=== PATIENT | male | born 1945 | race Caucasian/White ===

== ENCOUNTER → 2017-02-20 | Outpatient (CLI) | payer OTHER ==
[~2017-02-20] MED LIST: ASPIRIN EC325 MG PO; ATORVASTATIN CA40 MG PO; HYDROCHLOROTH12.5 M1 PO; LISINOPRIL40 MG PO; TENORMIN50 MG PO
== END ==
LOC: MRI 15:00
DX: M48.06 Spinal stenosis, lumbar region (principal); M47.896 Other spondylosis, lumbar region; M51.36 Other intervertebral disc degeneration, lumbar region; M47.898 Other spondylosis, sacral and sacrococcygeal region

== ENCOUNTER → 2017-02-27 | Outpatient (CLI) | payer OTHER ==
[~2017-02-27] VITALS: Ht 185.4 cm; Wt 100.2 kg
[~2017-02-27] MED LIST changes: +ASPIRIN325 PO; +NORVASC5 MG PO
--- NOTE | ~2017-02-27 | HPC ---
[facility] [address] [place] [address] PAIN MANAGEMENT CONSULTATION Name: NICK SPIVEY Room #: REG CHRIS OsbornRubi#: [id number] Admission: 02/27/17 Attend Phys: Michael Mcdonald DO Discharge: Date of : 45 Report #: [id number] THIS REPORT FOR: //name// CC: Perfecto Mcdonald The patient is a very pleasant 71-year-old gentleman seen in consultation at the request of Dr. Love for evaluation of pain, low back, right greater than left leg. The patient had similar symptoms in last fall, treated in interventional radiology with right L4-L5 synovial cyst rupture. Symptoms began to recur in November, became quite problematic in December, he notes pain is in the right posterior glute and thigh, exacerbated with standing, walking and bending. The patient was taking ctyp-dgu-uforuku anti-inflammatories with nominal efficacy. He denies bowel or bladder continence changes or saddle anesthesia, but does have paresthesia and weakness in the right leg. REVIEW OF SYSTEMS: A complete review of systems was attached to chart and was gone over with the patient. He is , seen in the company of his who is supportive. History of hypertension, taking atenolol, lisinopril, and hydrochlorothiazide; dyslipidemia for which he takes atorvastatin. Daily smoker, was counseled regarding same. Uses alcohol socially. 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 PHYSICAL EXAMINATION: Reveals a 6 feet tall, 217-pound gentleman, BMI is 29.2 kg/m2. Vital signs are stable as noted on the EMR. Cranial nerves 2-12 are grossly intact. Pupils are equal, reactive to light and accommodation. Extraocular muscles are intact. Upper extremity strength is preserved. Cervical range of motion is full. Heart is regular and rhythmical with a 2-3/6 systolic ejection murmur. The patient notes that he was diagnosed with a cardiac "valve" stenosis (aortic stenosis?), but denies chest pain or shortness of breath. Abdomen is unremarkable, though modestly endomorphic build. Rises from chair using armrest. Gait is tandem, though he does favor the right leg. He does have difficulty walking on his toes and heels secondary to balance. Right plantar flexion and lower extremity flexion is diminished compared to the left. Patellar reflex is diminished on the right compared to left. Straight leg raise is nominally positive on the right. Skin integument is intact. DIAGNOSTIC STUDIES: Include MRI of the lumbar spine from 02/20/2017, noting bilateral L4-L5 synovial cyst which has recurred, has moderate central stenosis at this level with lumbar spondylosis. ASSESSMENT: Symptomatic lumbar radiculopathy in a gentleman with nicotine habituation and hypertension, concern for aortic valve stenosis, which might [address] [address] PAIN MANAGEMENT CONSULTATION Name: NICK SPIVEY Room #: REG CARLOSergio Ramirez#: [id number] Admission: 02/27/17 Attend Phys: Michael Mcdonald DO Discharge: Date of : 45 Report #: [id number] make him a poor surgical candidate. RECOMMENDATIONS: Discussion with the patient today about therapeutic options. Epidural injection under fluoroscopy at L4-L5 to diminish acute symptoms. Follow up in 2 weeks for reevaluation and consideration for bilateral L4-L5 facet joint injections with intention of rupturing the cyst. Given that they have been ruptured in the past, likely their recurrence is high, given this, I did suggest that he least contact a neurosurgeon regarding therapeutic options. Given the patient contact information for Dr. Gallo Moore as they live very close to [facility]. We will also give him contact information for Dr. Luiz Beth and Dr. Yoshi Richards at [facility]. Thank you for allowing me to participate in the patient's care. I will keep you abreast of his progress. PROCEDURE: Lumbar epidural injection under fluoroscopy. PROCEDURE NOTE: After both written and informed consent to include risk of spinal cord damage, increased pain, weakness and dural puncture, the patient was taken to the fluoroscopy suite, placed in the prone position. After sterile prep and drape, a skin wheal with lidocaine was raised. A 22-gauge epidural Tuohy needle was inserted in the midline at L4-L5 with good loss to resistance. Negative aspiration for cerebrospinal fluid or blood was noted. Then 1 mL of Omnipaque under biplanar fluoroscopy showed good spread within the epidural space. This was followed with 80 mg of triamcinolone plus 1 mL of 1.5% preservative-free Xylocaine, 0.5 mL Xylocaine was then injected to flush the needle; it was removed. The patient was monitored for an appropriate period of time and discharged in good and stable condition. The patient was discharged in good and stable condition. Follow up in 2 weeks for reevaluation. <ELECTRONICALLY SIGNED> By: Michael Mcdonald DO 03/02/17 1118 [id number] Michael Mcdonald DO /nt
[2017-02-27 12:34] VITALS: BP 149/72
== END ==
LOC: PAIN 05:50
DX: M47.26 Other spondylosis with radiculopathy, lumbar region (principal); M48.06 Spinal stenosis, lumbar region; I10 Essential (primary) hypertension; F17.210 Nicotine dependence, cigarettes, uncomplicated; E11.9 Type 2 diabetes mellitus without complications

== ENCOUNTER → 2017-03-20 | Outpatient (CLI) | payer OTHER ==
[~2017-03-20] VITALS: Ht 185.4 cm; Wt 98.4 kg
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
[2017-03-20 12:36] VITALS: BP 142/67
== END | disposition home or self-care (01) ==
LOC: PAIN 06:52
DX: M54.16 Radiculopathy, lumbar region (principal); M47.896 Other spondylosis, lumbar region; M71.38 Other bursal cyst, other site; F17.200 Nicotine dependence, unspecified, uncomplicated; Z98.890 Other specified postprocedural states; Z79.82 Long term (current) use of aspirin; Z79.899 Other long term (current) drug therapy

== ENCOUNTER → 2019-12-13 | Outpatient (CLI) | payer OTHER | LOC: SJCVCIMAG 11:51 | DX: I08.8 Other rheumatic multiple valve diseases (principal); I44.7 Left bundle-branch block, unspecified; I44.0 Atrioventricular block, first degree; I11.9 Hypertensive heart disease without heart failure; R00.1 Bradycardia, unspecified; R94.31 Abnormal electrocardiogram [ECG] [EKG]; E78.00 Pure hypercholesterolemia, unspecified; F17.210 Nicotine dependence, cigarettes, uncomplicated; Z79.82 Long term (current) use of aspirin; Z79.899 Other long term (current) drug therapy; Z82.49 Family history of ischemic heart disease and other diseases of the circulatory system ==

== ENCOUNTER → 2020-10-02 | Outpatient (CLI) | payer OTHER | LOC: SJCVC 11:45 | PROVIDERS: ATTEND Internal Medicine Cardiovascular Disease | DX: I48.91 Unspecified atrial fibrillation (principal); R94.31 Abnormal electrocardiogram [ECG] [EKG]; I10 Essential (primary) hypertension; E78.00 Pure hypercholesterolemia, unspecified; I35.0 Nonrheumatic aortic (valve) stenosis; I44.7 Left bundle-branch block, unspecified; F17.210 Nicotine dependence, cigarettes, uncomplicated; Z79.82 Long term (current) use of aspirin; Z79.899 Other long term (current) drug therapy ==

== ENCOUNTER → 2020-12-03 | Outpatient (CLI) | payer OTHER | LOC: SJCVCIMAG 09:46 | PROVIDERS: ATTEND Internal Medicine Cardiovascular Disease | DX: I08.8 Other rheumatic multiple valve diseases (principal); I11.9 Hypertensive heart disease without heart failure; I48.91 Unspecified atrial fibrillation; I44.7 Left bundle-branch block, unspecified; E78.5 Hyperlipidemia, unspecified; E78.00 Pure hypercholesterolemia, unspecified; F17.210 Nicotine dependence, cigarettes, uncomplicated; Z72.89 Other problems related to lifestyle; Z79.82 Long term (current) use of aspirin; Z79.899 Other long term (current) drug therapy ==

== ENCOUNTER → 2021-06-19 | Outpatient (CLI) | payer OTHER ==
[~2021-06-19] MED LIST changes: +ASA81BEC PO; +LIPITOR40 MG PO; +LOSARTAN POTASS50 MG PO; +XARELTO20 MG PO
== END ==
LOC: LAB 08:34
PROVIDERS: ATTEND Student in an Organized Health Care Education/Training Program
DX: Z01.812 Encounter for preprocedural laboratory examination (principal); Z20.822 Contact with and (suspected) exposure to COVID-19

== ENCOUNTER → 2021-06-21 | Outpatient (CLI) | payer OTHER ==
[~2021-06-21] VITALS: Ht 182.9 cm; Wt 90.7 kg
--- NOTE | ~2021-06-21 | P ---
[facility] [place] [address] [place] [address] PROCEDURE REPORT Name: NICK SPIVEY Room #: REG CHRIS James#: [id number] Admission: 06/21/21 Attend Phys: Raymond Haas Discharge: Date of : 45 Report #: [id number] THIS REPORT FOR: cc: Perfecto Love MD, Eric K. MD McElhinney, Christian C. MD ~ cc: Perfecto Love MD DATE OF SERVICE: 06/21/2021 PROCEDURE PERFORMED: Colonoscopy with biopsies. HISTORY OF PRESENT ILLNESS: The patient is a 76-year-old male with a history of colon polyps 6 years ago. He is here for a routine followup. He denies any symptoms other than constipation. He does have a family history of colon cancer in his brother. DESCRIPTION OF PROCEDURE: The risks and benefits of the procedure were explained to the patient, those risks including but not limited to bleeding, perforation and the risk of sedation. He understood these risks and gave informed consent. Sedation was given using propofol per Anesthesia. Next, a digital rectal exam was initially performed, which was normal. Next, using a standard Olympus colonoscope, the scope was placed in the patient's anus and advanced under direct vision to the cecum. The overall prep was excellent. Cecum and ileocecal valve were normal in appearance. In the ascending colon, a 5 mm sessile polyp was noted. This was removed with cold forceps. The transverse colon and descending colon were normal. A few small scattered diverticula were noted in the sigmoid colon. Also, noted were three 3-4 mm sessile polyps in the sigmoid colon, all were removed with cold forceps. In the rectum, a 3-mm sessile polyp noted and removed with cold forceps. On retroflexion, small nonbleeding internal hemorrhoids were noted. The scope was then withdrawn and the procedure terminated. The patient tolerated the procedure well. IMPRESSION: 1. Small colonic polyps. 2. Sigmoid diverticulosis. 3. Internal hemorrhoids. 4. Otherwise, normal colonoscopy. RECOMMENDATIONS: 1. Await biopsies. 2. Repeat colonoscopy in 5 years. [facility] [address] [place] [address] PROCEDURE REPORT Name: NICK SPIVEY Room #: REG CHRIS Ramirez#: [id number] Admission: 06/21/21 Attend Phys: Raymond Haas Discharge: Date of : 45 Report #: [id number] Thank you for allowing me to participate in his care. By: [id number] Raymond Florentino MD /nt
--- NOTE | 2021-06-24 18:06 | PATH ---
[facility] [address] [address] PATHOLOGY RPT PROCEDURE Name: NICK RÍOS Room #: REG CHRIS Anurag.#: [id number] Admission: 06/21/21 Date of : 45 Discharge: Report #: [id number] Path Case #: [id number] [facility] Accession Number: [id number] . 01 Material submitted: . PART A: colon - ASCENDING COLON BIOPSY. Modifiers: ascending PART B: sigmoid colon - SIGMOID COLON POLYPS X3 PART C: rectum - RECTAL POLYP . 01 Clinician provided ICD-10: n . 01 Clinical history: . DTS/COLONOSCOPY /HX OF POLYPS COLON POLYPS, DIVERTICULOSIS . 02 Diagnosis: A. Large intestine, ascending colon, endoscopic biopsy: - Tubular adenoma. - Negative for high-grade dysplasia . B. Polyps x3, sigmoid colon polyps, endoscopic biopsy: - One fragment showing tubular adenoma without high-grade dysplasia. - Remainder of fragments showing hyperplastic polyps without dysplasia. . C. Polyp, rectal polyp, endoscopic biopsy: - Hyperplastic polyp. - Negative for dysplasia. . 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 02 Electronically signed: . Eve Mcgee MD, Pathologist NPI- [id number] . 01 Gross description: . A. Received in formalin labeled "Khushbu Nick, ascending colon biopsy" are 2 fragments of tamayo-brown soft tissue measuring 0.3 x 0.3 x 0.2 cm and 0.6 x 0.3 x 0.2 cm. The specimen is submitted entirely in A1. . B. Received in formalin labeled "Kasey Ríosy sigmoid colon polyp x3" are multiple fragments of tamayo-brown soft tissue measuring in aggregate 1.4 x 0.6 x 0.3 cm. The specimen is submitted entirely in B1. . C. Received in formalin labeled "Nick Ríos rectal polyp" is a fragment of tamayo-brown soft tissue measuring 0.7 x 0.4 x 0.2 cm. The specimen is [address] [address] PATHOLOGY RPT PROCEDURE Name: NICK RÍOS Room #: REG CLSergio Ramirez#: [id number] Admission: 06/21/21 Date of : 45 Discharge: Report #: [id number] Path Case #: [id number] submitted entirely in C1.([facility]; 06/22/2021) GZA/GZA 06/22/2021 [facility] Local . 02 Pathologist provided ICD-10: D12.2, D12.5, K63.5, K62.1 . 02 CPT . 476152, [id number], [id number] Specimen Comment: A courtesy copy of this report has been sent to [phone] Specimen Comment: Report sent to DR. HAIR Performed at: [address], [place], [place] [id number] MD Phil Silva MD Phone: [phone] Performed at: [address] [id number] MD Eve Mcgee MD Phone: [phone]
== END | disposition home or self-care (01) ==
LOC: GI 07:50
PROVIDERS: ATTEND Specialist
DX: K59.00 Constipation, unspecified (principal); D12.2 Benign neoplasm of ascending colon; D12.5 Benign neoplasm of sigmoid colon; K57.30 Diverticulosis of large intestine without perforation or abscess without bleeding; K64.8 Other hemorrhoids; Z98.890 Other specified postprocedural states; Z86.010 Personal history of colon polyps; Z80.0 Family history of malignant neoplasm of digestive organs; Z79.899 Other long term (current) drug therapy; Z79.82 Long term (current) use of aspirin
CPT/HCPCS: 62110; 62900